=== PATIENT | male | born 1995 | race Two or more races ===

== ENCOUNTER 2021-05-30 03:49 | Emergency (ER) | payer MEDICAID ==
[~2021-05-30] VITALS: Ht 188 cm; Wt 103.9 kg
[2021-05-30 03:49] VITALS: BP 134/84
[2021-05-30] MEDS ORDERED: AZITHROMYCIN 250 MG TAB PO ONE ×2 (04:45→04:57)
[2021-05-30] MEDS ORDERED: cefTRIAXone SOD 1,000 MG VL IM ONE (04:45)
== END 2021-05-30 05:17 | disposition home or self-care (01) ==
LOC: ER 03:49
DX: Z20.2 Contact with and (suspected) exposure to infections with a predominantly sexual mode of transmission (principal); F17.210 Nicotine dependence, cigarettes, uncomplicated
CPT/HCPCS: 96372; 99283; J0696

== ENCOUNTER 2021-07-29 21:16 | Emergency (ER) | payer MEDICAID ==
[~2021-07-29] VITALS: Ht 188 cm; Wt 108.0 kg
[2021-07-29 21:17] VITALS: BP 150/90
== END 2021-07-30 01:57 | disposition left against medical advice (07) ==
LOC: ER 21:19
DX: R05.9 Cough, unspecified (principal); K05.319 Chronic periodontitis, localized, unspecified severity; Z53.21 Procedure and treatment not carried out due to patient leaving prior to being seen by health care provider; Z20.822 Contact with and (suspected) exposure to COVID-19
CPT/HCPCS: 36415; 87426; 87804

== ENCOUNTER → 2021-08-06 | Emergency (ER) | payer MEDICAID ==
[~2021-08-06] VITALS: Ht 188 cm; Wt 110.2 kg
[2021-08-07 00:17] VITALS: BP 121/75
== END | disposition home or self-care (01) ==
LOC: ER 23:46
DX: K04.7 Periapical abscess without sinus (principal); F17.210 Nicotine dependence, cigarettes, uncomplicated

== ENCOUNTER 2021-09-03 01:32 | Emergency (ER) | payer MEDICAID ==
[~2021-09-03] VITALS: Ht 188 cm; Wt 110.2 kg
[2021-09-03 01:35] VITALS: BP 130/79
== END 2021-09-03 04:45 | disposition left against medical advice (07) ==
LOC: ER 01:32
DX: R21 Rash and other nonspecific skin eruption (principal); Z53.21 Procedure and treatment not carried out due to patient leaving prior to being seen by health care provider

== ENCOUNTER 2021-10-23 01:38 | Emergency (ER) | payer MEDICAID ==
[~2021-10-23] VITALS: Ht 188 cm; Wt 110.2 kg
[2021-10-23 01:39] VITALS: BP 134/74
== END 2021-10-23 05:23 | disposition left against medical advice (07) ==
LOC: ER 01:41
DX: A64 Unspecified sexually transmitted disease (principal); Z53.21 Procedure and treatment not carried out due to patient leaving prior to being seen by health care provider

== ENCOUNTER 2023-03-13 04:30 | Emergency (ER) | payer MEDICAID ==
[~2023-03-13] VITALS: Ht 188 cm; Wt 119.0 kg
[2023-03-13 04:48] VITALS: BP 130/80; PULSE 117; RESP 16; O2SAT 97
== END 2023-03-13 08:20 | disposition left against medical advice (07) ==
LOC: ER 04:30
DX: Z20.2 Contact with and (suspected) exposure to infections with a predominantly sexual mode of transmission (principal); Z53.21 Procedure and treatment not carried out due to patient leaving prior to being seen by health care provider